=== PATIENT | female | born 1955 | race Caucasian/White ===

== ENCOUNTER 2016-10-18 00:30 | Emergency (ER) | payer OTHER ==
[2016-10-18] MEDS ORDERED: Acetaminophen/Codeine 30-300mg Tablet ONE (00:54)
[2016-10-18] MEDS ORDERED: Ketorolac Tromethamine 60 MG/2 ML VIAL ONE (00:54)
== END 2016-10-18 01:17 | disposition home or self-care (01) ==
LOC: BURERS 00:30
DX: M54.5 Low back pain (principal); M89.29 Other disorders of bone development and growth, multiple sites; F31.9 Bipolar disorder, unspecified; F17.210 Nicotine dependence, cigarettes, uncomplicated; Z79.899 Other long term (current) drug therapy
CPT/HCPCS: 96372; J1885

== ENCOUNTER 2022-02-26 23:08 | Emergency (ER) | payer OTHER | END 2022-02-27 00:39 | disposition home or self-care (01) | LOC: BURERS 23:08 | DX: S92.354A Nondisplaced fracture of fifth metatarsal bone, right foot, initial encounter for closed fracture (principal); Z87.891 Personal history of nicotine dependence; W01.0XXA Fall on same level from slipping, tripping and stumbling without subsequent striking against object, initial encounter | CPT/HCPCS: 29515 ==